=== PATIENT | male | born 1995 | race American Indian/Alaskan Native ===

== ENCOUNTER 2021-01-06 09:41 | Emergency (ER) | payer OTHER ==
[2021-01-06] MEDS ORDERED: ACETAMINOPHEN 500 MG TAB PO STA (11:51)
[2021-01-06] MEDS ORDERED: IBUPROFEN 800 MG TAB PO ONE (11:51)
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
[2021-01-06 11:56] VITALS: BP 150/86
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
== END 2021-01-06 14:06 | disposition home or self-care (01) ==
LOC: ED 09:41
DX: S80.02XA Contusion of left knee, initial encounter (principal); S80.01XA Contusion of right knee, initial encounter; Z79.899 Other long term (current) drug therapy; V87.7XXA Person injured in collision between other specified motor vehicles (traffic), initial encounter; Y93.89 Activity, other specified; Y92.488 Other paved roadways as the place of occurrence of the external cause; Y99.8 Other external cause status
CPT/HCPCS: 99283